=== PATIENT | male | born 2000 | race African-American/Black ===

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

== ENCOUNTER 2020-02-02 11:18 | Emergency (ER) | payer OTHER ==
[~2020-02-02] VITALS: Ht 170.2 cm; Wt 72.7 kg
[~2020-02-02 11:18] MED LIST changes: +CEPH500T PO; +HYDR-3164 PO; +NAPR-514 PO
[2020-02-02 11:38] VITALS: BP 122/61
--- NOTE | 2020-02-02 11:48 | PHYS DOC ---
Past Medical History Past Medical History: No Pertinent History Past Surgical History: No Surgical History Smoking Status: Never Smoker Alcohol Use: None Drug Use: None General Adult EDM: Chief Complaint: DIZZY/LIGHT HEADED HPI: HPI: 19-year-old male presented emergency department today with an episode of diz ziness while at work. He was feeling mildly dizzy so he sat down which improved his symptoms. His symptoms are worse when he stands up. He reports normal oral intake and denies any pain. After arrival to the emergency department the patient is minimally symptomatic now and is much improved. He denies any pain and is resting comfortably in the examination room. Review of systems is negative for chest pain shortness of breath abdominal pain vomiting fevers chills cough neck pain. All other review of systems negative. ED course: 19-year-old male presenting with an episode of dizziness now feeling much better. EKG obtained which shows sinus rhythm with a mildly bradycardic rate. Mild repolarization abnormalities. Not suggestive of acute ischemia. Patient was able to walk in the emergency department without severe symptoms. We offered the patient IV fluids however the patient would like to try to drink oral fluids and return if he is feeling worse. The patient has been examined and was not found to have an emergency medical condition. The patient was then discharged home in stable condition to follow up with their primary care physician over the next 1-2 days. They were to return if their symptoms worsened or if they were concerned for any reason. They were also instructed to return to the emergency department if they were unable to get the recommended and appropriate follow-up. [id number] discharge instructions and return precautions were given. Patient's questions were answered to their satisfaction. Patient is comfortable with plan. During the patient's care I used an N95 mask, gloves, and eye protection. Review of Systems: Review of Systems: Constitutional: Denies fever or chills. [] Eyes: Denies change in visual acuity. [] HENT: Denies nasal congestion or sore throat. [] Respiratory: Denies cough or shortness of breath. [] Cardiovascular: Denies chest pain or edema. [] GI: Denies abdominal pain, nausea, vomiting, bloody stools or diarrhea. [] : Denies dysuria. [] Musculoskeletal: Denies back pain or joint pain. [] Integument: Denies rash. [] Neurologic: Denies headache, focal weakness or sensory changes. [] Endocrine: Denies polyuria or polydipsia. [] Lymphatic: Denies swollen glands. [] Psychiatric: Denies depression or anxiety. [] Heart Score: Risk Factors: Risk Factors: DM, Current or recent (<one month) smoker, HTN, HLP, family history of CAD, obesity. Risk Scores: Score 0 - 3: 2.5% MACE over next 6 weeks - Discharge Home Score 4 - 6: 20.3% MACE over next 6 weeks - Admit for Clinical Observation Score 7 - 10: 72.7% MACE over next 6 weeks - Early Invasive Strategies Allergies: Allergies: Allergies Coded Allergies Type Severity Reaction Last Updated Verified No Known Drug Allergies 06/21/17 No Physical Exam: PE: Constitutional: Well developed, well nourished, no acute distress, non-toxic appearance. [] HENT: Normocephalic, atraumatic, bilateral external ears normal, oropharynx moist, no oral exudates, nose normal. [] Eyes: PERRLA, EOMI, conjunctiva normal, no discharge. [] Neck: Normal range of motion, no tenderness, supple, no stridor. [] Cardiovascular:Heart rate regular rhythm, no murmur [] Lungs & Thorax: Bilateral breath sounds clear to auscultation [] Abdomen: Bowel sounds normal, soft, no tenderness, no masses, no pulsatile masses. [] Skin: Warm, dry, no erythema, no rash. [] Back: No tenderness, no CVA tenderness. [] Extremities: No tenderness, no cyanosis, no clubbing, ROM intact, no edema. [] Neurologic: Alert and oriented X 3, normal motor function, normal sensory function, no focal deficits noted. [] Psychologic: Affect normal, judgement normal, mood normal. [] Current Patient Data: Vital Signs: Vital Signs Date Time Temp Pulse Resp B/P (MAP) Pulse Ox O2 Delivery O2 Flow Rate FiO2 02/02/20 11:38 97.6 57 16 122/61 (81) 99 Room Air 97.6 EKG: EKG: [] Radiology/Procedures: Radiology/Procedures: [] Course & Med Decision Making: Course & Med Decision Making Pertinent Labs and Imaging studies reviewed. (See chart for details) [] Dragon Disclaimer: Dragon Disclaimer: This electronic medical record was generated, in whole or in part, using a voice recognition dictation system. Departure Departure Impression: Primary Impression: Dizziness Disposition: 01 HOME, SELF-CARE Condition: STABLE Referrals: UNKNOWN PCP NAME (PCP) Patient Instructions: Dizziness, [id number] MONTSERRAT MERCER MD Feb 02, 2020 11:48
--- NOTE | 2020-02-02 12:31 | EKG ---
[facility] [address] [place] [address] Test Date: 2020-02-02 Test Time: 11:53:59 Pat Name: NARCISA JAMISON Department: Room: Gender: M Senior Technologist: : 2000 Requested By: MONTSERRAT MERCER Order Number: [id number] Reading MD: Escobar Rogers Measurements Intervals [place] Rate: 54 P: 58 NM: 162 QRS: 18 QRSD: 96 T: 15 QT: 402 QTc: 387 Interpretive Statements SINUS RHYTHM NONSPECIFIC ST-T WAVE CHANGES. Electronically Signed On 02-02-2020 13:05:48 CDT by Escobar Rogers
== END 2020-02-02 12:08 | disposition home or self-care (01) ==
LOC: ER 11:18
DX: R42 Dizziness and giddiness (principal)
CPT/HCPCS: 93005; 99283

== ENCOUNTER 2021-07-08 18:59 | Emergency (ER) | payer SELFPAY ==
[~2021-07-08] VITALS: Ht 170.2 cm; Wt 90.0 kg
[2021-07-08] MEDS ORDERED: CHARCOAL AQUA 25 GM/120 ML SUSPENSION. PO ONE (19:15)
[2021-07-08] MEDS ORDERED: ONDANSETRON PF 4 MG/2 ML VIAL. IVP ONE (19:15)
[2021-07-08] MEDS ORDERED: NALOXONE 0.4 MG/ML VIAL. IV ONE (19:15)
[2021-07-08] MEDS ORDERED: IV NORMAL SALINE 1000ML BAG 1,000 ML IV ONE (19:30)
--- NOTE | 2021-07-08 19:35 | PHYS DOC ---
Past Medical History Past Medical History: No Pertinent History Past Surgical History: No Surgical History Smoking Status: Never Smoker Alcohol Use: None Drug Use: None General Adult EDM: Chief Complaint: OVERDOSE HPI: HPI: Patient is a 20 year old male who presents with an overdose of Percocet. 6pm ingestion. No self harm intent. Denies SI/HI. 3-6 tabs of 10-20 mg oxycodone/unknown amount of tylenol. He fell playing football yesterday and has had severe neck pain since, which is why he took the pain meds. Denies numbness, tingling, weakness. Denies hx of IVDU or previous opiate use. Since taking it has had nausea and vomiting. Smoked weed tonight as well. Denies other coingestions. Review of Systems: Review of Systems: Constitutional: Denies fever or chills. [] Eyes: Denies change in visual acuity. [] HENT: Reports neck pain. [] Respiratory: Denies cough or shortness of breath. [] Cardiovascular: Denies chest pain or edema. [] GI: Reports n/v, No bloody stools or diarrhea. [] : Denies dysuria. [] Musculoskeletal: Denies back pain or joint pain. [] Integument: Denies rash. [] Neurologic: Denies headache, focal weakness or sensory changes. [] Endocrine: Denies polyuria or polydipsia. [] Lymphatic: Denies swollen glands. [] Psychiatric: Denies depression or anxiety. [] Heart Score: C/O Chest Pain: No Risk Factors: Risk Factors: DM, Current or recent (<one month) smoker, HTN, HLP, family history of CAD, obesity. Risk Scores: Score 0 - 3: 2.5% MACE over next 6 weeks - Discharge Home Score 4 - 6: 20.3% MACE over next 6 weeks - Admit for Clinical Observation Score 7 - 10: 72.7% MACE over next 6 weeks - Early Invasive Strategies Allergies: Allergies: Allergies Coded Allergies Type Severity Reaction Last Updated Verified No Known Drug Allergies 06/21/17 No Physical Exam: PE: Constitutional: Sitting up in wheelchair, transfers to bed. Vomiting. [] HENT: Normocephalic, atraumatic, bilateral external ears normal, oropharynx moist, no oral exudates, nose normal. [] Eyes: Pupils miotic, equal, reactive. [] Neck: Normal range of motion, no tenderness, supple, no stridor. [] Cardiovascular:Heart rate regular rhythm, no murmur [] Lungs & Thorax: Speaking in full sentences. Normal respiratory rate. Bilateral breath sounds clear to auscultation [] Abdomen: Bowel sounds normal, soft, no tenderness, no masses, no pulsatile masses. [] Skin: Warm, dry, no erythema, no rash. [] Back: No tenderness, no CVA tenderness. [] Extremities: No tenderness, no cyanosis, no clubbing, ROM intact, no edema. [] Neurologic: Alert and oriented X 3, Speech normal, normal motor function, normal sensory function, no focal deficits noted. [] Psychologic: Affect normal, judgement normal, mood normal. [] Current Patient Data: Vital Signs: Vital Signs Date Time Temp Pulse Resp B/P (MAP) Pulse Ox O2 Delivery O2 Flow Rate FiO2 07/08/21 19:02 98.0 85 18 124/74 (91) 100 98.0 EKG: EKG: Sinus rhythm. Rate 90. Normal axis. QTc 477. QRS 104, No acute ischemic changes peer normal appearance of AVR [] Radiology/Procedures: Radiology/Procedures: [facility] [address] [place] [address] IMAGING REPORT Signed PATIENT: RICHIE ALLEN DACCOUNT: [id number] : 03/21/1992 LOCATION: ER AGE: 29 SEX: F EXAM STATUS: REG ER ORD. PHYSICIAN: CB VINES MD REASON: SOB, CHEST PAIN PROCEDURE: CHEST AP ONLY XR CHEST 1V History: Reason: SOB, CHEST PAIN / Spl. Instructions: / History: Comparison: June 29, 2018 Findings: No consolidation or pleural effusion. Normal heart size. No pneumothorax. Impression: 1. No acute cardiopulmonary process. Electronically signed by: Fuad Pham DO (07/08/2021 7:50 PM) [facility] DICTATED and SIGNED BY: FUAD PHAM DO DATE: 07/08/21 [id number] [] Course & Med Decision Making: Course & Med Decision Making Pertinent Labs and Imaging studies reviewed. (See chart for details) Patient a 20-year-old male who presents with an unintentional Percocet (oxycodone/acetaminophen) overdose in an attempt to treat neck pain sustained from an injury yesterday. Ingestion at 6 PM, reportedly between 30-120 mg oxycodone ingestion, unknown acetaminophen dosage. Treating n/v with zofran now. Will give activated charcoal, since ingestion was < 2 hours ago.' Will monitor with continuous pulse ox and telemetry, currently no need for narcan given normal respiratory status. 4 hour tylenol level ordered, salicylate, bmp ordered. He does have midline neck pain after trauma will CT neck. 1934 Salicylate slightly elevated at 4.7. Will repeat salicylate level with 4-hour Tylenol level. Tolerated activated charcoal well. Oxygen dipped into the 80s at one point, will give Narcan 0.4 mg. We will continue to monitor. 2101 Patient is feeling improved after Narcan administration. Has remained on room air with good respiratory effort. Follow-up salicylate level was decreased. 4-hour Tylenol level is negative. We will continue to monitor until 6 hours postingestion to ensure no rebound narcotic effect. 2308 For a short period of time he had desats into the high 80s while sleeping, so he was monitored until this was no longer seen. Will be discharged at this time 0213 Frida Disclaimer: Frida Disclaimer: This electronic medical record was generated, in whole or in part, using a voice recognition dictation system. Departure Departure Impression: Primary Impression: Opiate overdose Disposition: HOME / SELF CARE / HOMELESS Condition: STABLE Referrals: NO PCP (PCP) Additional Instructions: Do not take opiate medications again without a prescription. If you have recurrent symptoms you can return to the emergency department for reevaluation at any time. CB VINES MD Jul 08, 2021 19:35
[2021-07-08 19:36] LABS: SALIC 4.3 mg/dL (2.8-20.0)
[2021-07-08 19:42] LABS: ACETAMIN < 2 mcg/ml (10-30)
--- NOTE | 2021-07-08 20:03 | RAD ---
Exam: CT cervical spine without contrast INDICATION: Fall, neck pain TECHNIQUE: Sequential axial images through the cervical spine obtained without IV contrast. Sagittal and coronal reformatted images were reconstructed from the axial data and reviewed. Exposure: One or more of the following in the visualized dose reduction techniques were utilized for this examination: 1. Automated exposure control 2. Adjustment of the MA and/or KV according to patient size 3. Use of iterative of reconstructive technique Comparisons: None FINDINGS: Visualized intracranial structures are unremarkable. Straightening of cervical spine which may positional. Vertebral body heights are well-maintained. Fracture to the cervical spine is not identified. No significant spondylotic change in cervical spine. Visualized paraspinal soft tissues are unremarkable. IMPRESSION: Negative CT C-spine for acute traumatic injury. Electronically signed by: Perez Rock MD (07/08/2021 8:01 PM) EMY
[2021-07-08 20:12] LABS: CALCIUM 8.6 mg/dL (8.5-10.1); CREATININE 1.3 mg/dL (0.7-1.3); GFR 85.2; POTASSIUM 3.1 mmol/L (3.5-5.1)
[2021-07-08 22:21] LABS: SALIC 3.9 mg/dL (2.8-20.0)
[2021-07-08 22:45] LABS: ACETAMIN < 2 mcg/ml (10-30)
--- NOTE | 2021-07-08 22:58 | EKG ---
[facility] [address] [place] [address] Test Date: 2021-07-08 Test Time: 19:16:19 Pat Name: NARCISA JAMISON Department: Room: Gender: M Dockworker: : 2000 Requested By: CB VINES Order Number: [id number] Reading MD: Measurements Intervals [place] Rate: 90 P: 86 MI: 150 QRS: 17 QRSD: 104 T: 26 QT: 386 QTc: 477 Interpretive Statements SINUS RHYTHM PROLONGED QT NO SPECIFIC ECG ABNORMALITIES RI6.02 No previous ECG available for comparison
[2021-07-09 02:18] VITALS: BP 115/66
== END 2021-07-09 02:25 | disposition home or self-care (01) ==
LOC: ER 18:59
DX: T40.2X1A Poisoning by other opioids, accidental (unintentional), initial encounter (principal); M54.2 Cervicalgia; G89.11 Acute pain due to trauma; W18.39XA Other fall on same level, initial encounter; Y93.61 Activity, american tackle football; Y92.89 Other specified places as the place of occurrence of the external cause; Y99.8 Other external cause status
CPT/HCPCS: 36415; 72125; 80048; 80329; 93005; 96361; 96374; 96375; 99285; J2310; J2405; J7030; G0480

== ENCOUNTER 2021-07-09 18:32 | Emergency (ER) | payer SELFPAY ==
[~2021-07-09] VITALS: Ht 167.6 cm; Wt 75.0 kg
[2021-07-09 20:53] VITALS: BP 130/64
--- NOTE | 2021-07-09 21:06 | PHYS DOC ---
Past Medical History Past Medical History: No Pertinent History Past Surgical History: No Surgical History Smoking Status: Never Smoker Alcohol Use: None Drug Use: None General Adult EDM: Chief Complaint: ANXIETY/PANIC ATTACK HPI: HPI: Patient is a 20 year old male who presents with multiple complaints that began this afternoon. Patient complaints include lightheadedness, body aches, blurred vision, chills, shortness of breath, palpitations, nausea, vomiting and upper abdominal pain. Patient denies headache, fever, chest pain, cough, diarrhea or constipation, dysuria and hematuria. He rates his generalized pain 10/10 and states, "I feel like I'm gonna ." Patient states when he was discharged from the ER this morning, he felt well. He states he went home and felt to sleep, and woke up with his current symptoms. He denies being able to keep [employer], soup or water down without vomiting. Review of Systems: Review of Systems: Constitutional: See HPI Eyes: See HPI HENT: Denies nasal congestion or sore throat. Respiratory: See HPI Cardiovascular: See HPI GI: See HPI : See HPI Musculoskeletal: Denies back pain or joint pain. Integument: Denies rash or other skin lesions Neurologic: Denies headache, focal weakness or sensory changes. Heart Score: C/O Chest Pain: No Allergies: Allergies: Allergies Coded Allergies Type Severity Reaction Last Updated Verified No Known Drug Allergies 07/09/21 No Physical Exam: PE: Constitutional: Patient is resting in bed with 2 blankets, but shaking as if he is cold. Well developed, well nourished, non-toxic appearance. HENT: Normocephalic, atraumatic, bilateral external ears normal, oropharynx moist, no oral exudates, nose normal. Eyes: PERRLA, EOMI, conjunctiva normal, no discharge. Neck: Normal range of motion, no step-offs no bony tenderness no paraspinal tenderness, supple, no stridor. Cardiovascular: Heart rate regular rhythm, no murmur. Lungs & Thorax: Bilateral breath sounds clear to auscultation. Abdomen: Bowel sounds normal, soft, left upper quadrant tenderness to palpation, no peritoneal signs, no rebound tenderness, no guarding, no masses, no pulsatile masses. Skin: Warm, dry, no erythema, no rash. Back: No step-offs, no bony tenderness, no paraspinal tenderness, no CVA tenderness. Extremities: No tenderness, no cyanosis, no clubbing, ROM intact, no edema. Neurologic: Alert and oriented x3, normal motor function, normal sensory function, no focal deficits noted. Psychologic: Speech is rapid and patient states "I feel like I am going to ." Current Patient Data: Labs: Laboratory Tests Test 07/09/21 21:30 07/09/21 21:39 White Blood Count 6.1 x10^3/uL (4.0-11.0) Red Blood Count 4.39 x10^6/uL (4.30-5.70) Hemoglobin 13.3 g/dL (13.0-17.5) Hematocrit 38.9 % (39.0-53.0) Mean Corpuscular Volume 89 fL (79-100) Mean Corpuscular Hemoglobin 30 pg (25-35) Mean Corpuscular Hemoglobin Concent 34 g/dL (31-37) Red Cell Distribution Width 12.1 % (11.5-14.5) Platelet Count 307 x10^3/uL (140-400) Neutrophils (%) (Auto) 61 % (31-73) Lymphocytes (%) (Auto) 26 % (24-48) Monocytes (%) (Auto) 12 % (0-9) Eosinophils (%) (Auto) 1 % (0-3) Basophils (%) (Auto) 1 % (0-3) Neutrophils # (Auto) 3.7 x10^3/uL (1.8-7.7) Lymphocytes # (Auto) 1.5 x10^3/uL (1.0-4.8) Monocytes # (Auto) 0.7 x10^3/uL (0.0-1.1) Eosinophils # (Auto) 0.0 x10^3/uL (0.0-0.7) Basophils # (Auto) 0.0 x10^3/uL (0.0-0.2) Sodium Level 138 mmol/L (136-145) Potassium Level 3.4 mmol/L (3.5-5.1) Chloride Level 104 mmol/L (98-107) Carbon Dioxide Level 25 mmol/L (21-32) Anion Gap 9 (6-14) Blood Urea Nitrogen 4 mg/dL (8-26) Creatinine 1.0 mg/dL (0.7-1.3) Estimated GFR (Cockcroft-Gault) 115.3 BUN/Creatinine Ratio 4 (6-20) Glucose Level 115 mg/dL (70-99) Calcium Level 9.1 mg/dL (8.5-10.1) Total Bilirubin 0.5 mg/dL (0.2-1.0) Aspartate Amino Transf (AST/SGOT) 38 U/L (15-37) Alanine Aminotransferase (ALT/SGPT) 43 U/L (16-63) Alkaline Phosphatase 75 U/L (46-116) Total Protein 7.4 g/dL (6.4-8.2) Albumin 3.8 g/dL (3.4-5.0) Albumin/Globulin Ratio 1.1 (1.0-1.7) Lipase 132 U/L (73-393) Urine Collection Type Unknown Urine Color Yellow Urine Clarity Clear Urine pH 7.0 (<5.0-8.0) Urine Specific Sabael 1.015 (1.000-1.030) Urine Protein Negative mg/dL (NEG-TRACE) Urine Glucose (UA) Negative mg/dL (NEG) Urine Ketones (Stick) 15 mg/dL (NEG) Urine Blood Negative (NEG) Urine Nitrite Negative (NEG) Urine Bilirubin Negative (NEG) Urine Urobilinogen Dipstick 1.0 mg/dL (0.2 mg/dL) Urine Leukocyte Esterase Trace (NEG) Urine RBC 0 /HPF (0-2) Urine WBC Occ /HPF (0-4) Urine Squamous Epithelial Cells Occ /LPF Urine Bacteria 0 /HPF (0-FEW) Urine Mucus Slight /LPF Urine Opiates Screen Neg (NEG) Urine Methadone Screen Neg (NEG) Urine Barbiturates Neg (NEG) Urine Phencyclidine Screen Neg (NEG) Urine Amphetamine/Methamphetamine Neg (NEG) Urine Benzodiazepines Screen Neg (NEG) Urine Cocaine Screen Neg (NEG) Urine Cannabinoids Screen Pos (NEG) Urine Ethyl Alcohol Neg (NEG) Vital Signs: Vital Signs Date Time Temp Pulse Resp B/P (MAP) Pulse Ox O2 Delivery O2 Flow Rate FiO2 07/09/21 20:53 97.7 64 16 130/64 (86) 100 Room Air 97.7 EKG: EKG: EKG Interpreted by Dr. Walter: Regular rate and rhythm 52 bpm with no ectopic beats. No concerning ST-T wave changes. Regular QR interval. Course & Med Decision Making: Course & Med Decision Making Pertinent Labs and Imaging studies reviewed. (See chart for details) Patient was seen in the department yesterday for possible opiate overdose. He was tested for acetaminophen and salicylate toxicity and observed for 6 hours. On discharge, he was feeling well. Patient work-up will include EKG and labs as well as urinalysis for acute pathology vs anxiety. Patient work-up is reassuring. Patient also states that after he passed a bowel movement, all of his symptoms have improved and he feels comfortable enough to go home. He reports he thinks he had a "panic attack," which would explain the nature and variety of his presenting symptoms. Adhering to a bland diet for the next 2 days was discussed with the patient, as to not trigger any further GI upset. Patient should follow-up with his primary care provider regarding any persistent feelings of anxiety. Patient understands and is agreeable to discharge plan. Dragon Disclaimer: Dragon Disclaimer: This electronic medical record was generated, in whole or in part, using a voice recognition dictation system. Departure Departure Disposition: HOME / SELF CARE / HOMELESS Condition: STABLE Referrals: NO PCP (PCP) MIRA ROSADO MD Patient Instructions: Anxiety and Panic Attacks, [id number], Nausea and Vomiting, [id number] Additional Instructions: You should eat bland foods for the next few days, including bananas, rice, applesauce and toast. Crackers and nonspicy soups would also be easy on your stomach. Should you have persistent or recurrent feelings of anxiety, you may follow-up with a family doctor. Referral was provided for primary care physician. You may also choose a family doctor of your choice. Please return to the emergency department if your symptoms return or worsen. MAYRA FONSECA Jul 09, 2021 21:06
[2021-07-09 21:39] LABS: BASO % 1 % (0-3); EOS % 1 % (0-3); HEMATOCRIT 38.9 % (39.0-53.0); HEMOGLOBIN 13.3 g/dL (13.0-17.5); LYMPH # 1.5 x10^3/uL (1.0-4.8); LYMPH % 26 % (24-48); MEAN CORPUSCULAR HEMOGLOBIN 30 pg (25-35); MEAN CORPUSCULAR HGB CONC 34 g/dL (31-37); MEAN CORPUSCULAR VOLUME 89 fL (79-100); MONO # 0.7 x10^3/uL (0.0-1.1); MONO % 12 % (0-9); NEUT # 3.7 x10^3/uL (1.8-7.7); NEUT % 61 % (31-73); PLATELET COUNT 307 x10^3/uL (140-400); RED BLOOD COUNT 4.39 x10^6/uL (4.30-5.70); RED CELL DISTRIBUTION WIDTH 12.1 % (11.5-14.5); WHITE BLOOD COUNT 6.1 x10^3/uL (4.0-11.0)
[2021-07-09 21:47] LABS: CALCIUM 9.1 mg/dL (8.5-10.1); GFR 115.3; POTASSIUM 3.4 mmol/L (3.5-5.1)
[2021-07-09 21:50] LABS: BILIRUBIN,URINE NEGATIVE (NEG); CLARITY,URINE CLEAR; COLOR,URINE YELLOW; NITRITE,URINE NEGATIVE (NEG); PROTEIN,URINE NEGATIVE (NEG-TRACE)
[2021-07-09 21:53] LABS: ALBUMIN 3.8 g/dL (3.4-5.0); ALBUMIN/GLOBULIN RATIO 1.1 (1.0-1.7); TOTAL BILIRUBIN 0.5 mg/dL (0.2-1.0); TOTAL PROTEIN 7.4 g/dL (6.4-8.2)
[2021-07-09 21:55] LABS: BACTERIA,URINE 0 /HPF (0-FEW); RBC,URINE 0 /HPF (0-2); WBC,URINE OCC /HPF (0-4)
[2021-07-09 21:57] LABS: BARBITURATES NEG (NEG); BENZODIAZEPINES NEG (NEG); CANNABINOIDS POS (NEG); COCAINE NEG (NEG); METHADONE NEG (NEG); OPIATES NEG (NEG); PHENCYCLIDINE NEG (NEG)
[2021-07-09 21:59] LABS: AMPHETAMINE/METHAMPHETAMINE NEG (NEG)
--- NOTE | 2021-07-09 22:33 | EKG ---
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
== END 2021-07-09 22:40 | disposition home or self-care (01) ==
LOC: ER 18:32
DX: R42 Dizziness and giddiness (principal); M79.10 Myalgia, unspecified site; R11.2 Nausea with vomiting, unspecified; H53.8 Other visual disturbances; R06.02 Shortness of breath; R00.2 Palpitations; R10.84 Generalized abdominal pain
CPT/HCPCS: 36415; 80053; 80307; 81001; 83690; 85025; 87086; 93005; 99284

== ENCOUNTER 2021-10-26 12:13 | Emergency (ER) | payer SELFPAY ==
[~2021-10-26] VITALS: Ht 167.6 cm; Wt 69.3 kg
[2021-10-26] MEDS ORDERED: ONDANSETRON ODT 4 MG TAB.RAPDIS. PO ONE (12:30)
--- NOTE | 2021-10-26 12:38 | PHYS DOC ---
Past Medical History Past Medical History: No Pertinent History Past Surgical History: No Surgical History Smoking Status: Never Smoker Alcohol Use: None Drug Use: None General Adult EDM: Chief Complaint: NAUSEA/VOMITING/DIARRHEA HPI: HPI: Patient is a 21 year old male who presents with runny nose for 2 days and then started with nausea and vomiting today. He had a friend that came up positive for COVID. Denies chest pain, cough, abdominal pain, diarrhea, shortness of air, fever, headache, dizziness, body aches. Denies any past medical history. Review of Systems: Review of Systems: Constitutional: Denies fever or +chills. [] Eyes: Denies change in visual acuity. [] HENT: + nasal congestion or denies sore throat. [] Respiratory: Denies cough or shortness of breath. [] Cardiovascular: Denies chest pain or edema. [] GI: Denies abdominal pain, +nausea, +vomiting, denies bloody stools or diarrhea. [] : Denies dysuria. [] Musculoskeletal: Denies back pain or joint pain. [] Integument: Denies rash. [] Neurologic: Denies headache, focal weakness or sensory changes. [] Endocrine: Denies polyuria or polydipsia. [] Lymphatic: Denies swollen glands. [] Psychiatric: Denies depression or anxiety. [] Heart Score: C/O Chest Pain: No Current Medications: Current Medications Medications (Trade) Dose Ordered Sig/Rajesh Start Time Stop Time Status Last Admin Dose Admin Ondansetron HCl (Zofran Odt) 4 mg 1X ONCE 10/26/21 12:30 10/26/21 12:31 UNV Allergies: Allergies: Allergies Coded Allergies Type Severity Reaction Last Updated Verified No Known Drug Allergies 07/09/21 No Physical Exam: PE: Constitutional: Well developed, well nourished, no acute distress, non-toxic ap pearance. [] HENT: Normocephalic, atraumatic, bilateral external ears normal, oropharynx moist, no oral exudates, nose normal. [] Eyes: PERRLA, EOMI, conjunctiva normal, no discharge. [] Neck: Normal range of motion, no tenderness, supple, no stridor. [] Cardiovascular:Heart rate regular rhythm, no murmur [] Lungs & Thorax: Bilateral breath sounds clear to auscultation [] Abdomen: Bowel sounds normal, soft, no tenderness, no masses, no pulsatile masses. [] Skin: Warm, dry, no erythema, no rash. [] Back: No tenderness, no CVA tenderness. [] Extremities: No tenderness, no cyanosis, no clubbing, ROM intact, no edema. [] Neurologic: Alert and oriented X 3, normal motor function, normal sensory function, no focal deficits noted. [] Psychologic: Affect normal, judgement normal, mood normal. [] EKG: EKG: [] Radiology/Procedures: Radiology/Procedures: [] Impression: [facility] [address] [place] [address] IMAGING REPORT Signed PATIENT: NARCISA JAMISON ACCOUNT: [id number] : 2000 LOCATION: ER AGE: 21 SEX: M EXAM STATUS: REG ER ORD. PHYSICIAN: ROBERTO WHYTE APRN REASON: nausea, vomiting PROCEDURE: ACUTE ABDOMEN SERIES EXAMINATION: Abdominal complete acute radiograph. VIEWS: Single view of the chest and 2 views of the abdomen COMPARISON: None INDICATION: 21 years, Male, vomiting, nausea. FINDINGS: Nonobstructive bowel gas pattern. No gross pneumoperitoneum.No abnormal intra- abdominal calcifications. Normal cardiomediastinal silhouette. No focal consolidation, pleural effusion or pneumothorax.No acute process process. IMPRESSION: Nonobstructive bowel gas pattern. Electronically signed by: Felisha Wright MD (10/26/2021 1:05 PM) [id number] DICTATED and SIGNED BY: FELISHA WRIGHT MD DATE: 10/26/21 [id number] 0 Course & Med Decision Making: Course & Med Decision Making Pertinent Labs and Imaging studies reviewed. (See chart for details) COVID-19 CRITERIA: The patient was evaluated during the global COVID-19 pandemic, and that diagnosis was suspected/considered upon their initial presentation. Their evaluation, treatment and testing was consistent with current guidelines for patients who present with complaints or symptoms that may be related to COVID-19. See HPI. Alert and orient x4. Ambulatory steady gait. Speaks in full clear sentences. Abdomen is soft and nontender. No CVA tenderness. Lungs are clear to auscultation all lobes. Vital signs are within normal limits. Afebrile. Throat is without swelling. [] Frida Disclaimer: Frida Disclaimer: This electronic medical record was generated, in whole or in part, using a voice recognition dictation system. COVID-19 Patient Risks: Age 65 or older: No Sign of co-morbidity: No Exp to person + for COVID: Yes Exp to PUI: Yes Travel from affected area: No Lower respiratory symptoms: No Fever: No Other: Yes (N,V) PPE Use: Full PPE with N95 mask or PAPR: Yes Departure Departure Impression: Primary Impression: Person under investigation for COVID-19 Additional Impression: Nausea & vomiting Qualified Codes: R11.2 - Nausea with vomiting, unspecified Disposition: HOME / SELF CARE / HOMELESS Condition: STABLE Referrals: NO PCP (PCP) Patient Instructions: Nausea and Vomiting Additional Instructions: Follow-up with your primary care provider. Drink plenty of fluids. If you general running a fever or starts having abdominal pain return to the emergency room. I would quarantine until you get back the results of the official COVID test. Scripts Ondansetron (ONDANSETRON ODT) 4 Mg Tab.rapdis 1 TAB PO PRN Q6-8HRS, #16 TAB Prov: ROBERTO WHYTE APRN 10/26/21 ROBERTO WHYTE APRN Oct 26, 2021 12:38
[2021-10-26 13:03] LABS: INFLUENZA A PATIENT NEGATIVE (NEGATIVE); INFLUENZA B PATIENT NEGATIVE (NEGATIVE)
--- NOTE | 2021-10-26 13:07 | RAD ---
EXAMINATION: Abdominal complete acute radiograph. VIEWS: Single view of the chest and 2 views of the abdomen COMPARISON: None INDICATION: 21 years, Male, vomiting, nausea. FINDINGS: Nonobstructive bowel gas pattern. No gross pneumoperitoneum.No abnormal intra-abdominal calcification s. Normal cardiomediastinal silhouette. No focal consolidation, pleural effusion or pneumothorax.No a cute process process. IMPRESSION: Nonobstructive bowel gas pattern. Electronically signed by: Jori Wright MD (10/26/2021 1:05 PM) [id number]
[2021-10-26] MEDS ORDERED: ONDA4TAB12 PO (13:15)
[2021-10-26 15:26] VITALS: BP 109/58
== END 2021-10-26 15:30 | disposition home or self-care (01) ==
LOC: ER 12:13
DX: R11.2 Nausea with vomiting, unspecified (principal); R09.89 Other specified symptoms and signs involving the circulatory and respiratory systems; Z20.822 Contact with and (suspected) exposure to COVID-19
CPT/HCPCS: 74022; 87428; 99284; U0003; U0005